=== PATIENT | female | born 1990 | race Caucasian/White ===

== ENCOUNTER 2023-05-27 08:37 | Inpatient (IN) | payer OTHER ==
[~2023-05-27 08:37] MED LIST: Bupivacaine 0.25% 10 ML SDV ONE; Bupivacaine 0.5% 30 ML SDV ONE; Dexamethasone 4 MG/ML 5 ML MDV ONE; EPINEPHrine 1 MG/ML SDV ONE; HYDROmorphone 0.5 MG/0.5 ML Syringe IVPUSH PRN; Lactated Ringers 1,000 ML IV SCH; Midazolam 1 MG/ML 2 ML SDV ONE; Ondansetron 4 MG/2 ML SDV IVPUSH PRN; Ondansetron 4 MG/2 ML SDV ONE; Propofol 200 MG/20 ML SDV ONE; Rocuronium 50 MG/5 ML Vial ONE; Sodium Chloride 0.9% 10 ML Syringe FLUSH PRN; fentaNYL 100 MCG/2 ML SDV IVPUSH PRN; fentaNYL 250 MCG/5 ML SDV ONE
[2023-05-27] MEDS ORDERED: ceFAZolin 2 GM Vial ONE (08:50)
[2023-05-27] MEDS ORDERED: Scopalamine 1mg/3day Transdermal Patch TOP ONE (08:59)
[2023-05-27] MEDS ORDERED: fentaNYL 250 MCG/5 ML SDV ONE (09:13)
[2023-05-27] MEDS ORDERED: Lactated Ringers 1,000 ML IV ONE (11:00)
[2023-05-27] MEDS ORDERED: Ketorolac 30 MG/ML SDV IVPUSH PRN (12:12)
[2023-05-27] MEDS: Acetaminophen/oxyCODONE 325-5 MG Tab PO PRN ×3 (13:25→20:55)
[2023-05-27] MEDS: Sodium Chloride 0.9% 10 ML Syringe FLUSH SCH ×2 (18:28→22:16)
[2023-05-27 19:37] LABS: BASOPHILS PERCENT AUTO 0.1 % (0.0-1.0); HEMOGLOBIN 10.6 gm/dl (12.0-16.0); IMMATURE GRAN ABSOLUTE AUTO 0.03 K/mm3 (0.00-0.05); IMMATURE GRAN PERCENT AUTO 0.2 % (0.0-0.4); LYMPHOCYTES ABSOLUTE AUTO 1.4 K/mm3 (1.0-4.8); LYMPHOCYTES PERCENT AUTO 10.4 % (24.0-44.0); MEAN CORPUSCULAR HEMOGLOBIN 29.5 pg (28.0-32.0); MEAN CORPUSCULAR HGB CONC 33.1 g/dl (32.0-36.0); MEAN CORPUSCULAR VOLUME 89.1 fl (83.0-99.0); MEAN PLATELET VOLUME 10.9 fl (9.4-12.3); MONOCYTES PERCENT AUTO 7.1 % (0.0-8.0); NEUTROPHILS ABSOLUTE AUTO 11.2 K/mm3 (1.8-7.7); NEUTROPHILS PERCENT AUTO 82.2 % (41.0-71.0); PLATELET COUNT,PLT 305 K/mm3 (150-400); RED BLOOD CELL COUNT 3.59 M/mm3 (4.10-5.30); WHITE BLOOD CELL COUNT,WBC 13.66 K/mm3 (3.9-11.3)
[2023-05-27 19:48] LABS: ALBUMIN 3.2 g/dl (3.4-5.0); ANION GAP 13.4 (5-15); BILIRUBIN TOTAL 0.3 mg/dL (0.2-1.0); BUN/CREATININE RATIO 18.6 (14-18); CALCIUM 8.5 mg/dL (8.5-10.1); CREATININE 0.7 mg/dL (0.55-1.02); EST CRCL DRUG DOSING (CG) 101.48 mL/min; POTASSIUM,K 4.4 mEq/L (3.5-5.1); PROTEIN TOTAL,TP 6.3 g/dl (6.4-8.2)
[2023-05-27] MEDS ORDERED: Simethicone 80 MG Tab.Chew PO PRN (20:25)
[2023-05-27] MEDS: Simethicone 80 MG Tab.Chew PO PRN (20:48)
[2023-05-27] MEDS ORDERED: Nicotine 14 MG/24 Hr Patch TRDERM SCH (22:30)
[2023-05-28] MEDS: Simethicone 80 MG Tab.Chew PO PRN (03:06)
[2023-05-28] MEDS: Acetaminophen/oxyCODONE 325-5 MG Tab PO PRN (03:06)
== END 2023-05-28 08:04 | disposition home or self-care (01) | DRG 743 ==
LOC: JD.SDS 08:37 → JD.OB 17:06
PROVIDERS: ADMIT Obstetrics & Gynecology; ATTEND Obstetrics & Gynecology
PROC: 0UT7FZZ Resection of Bilateral Fallopian Tubes, Via Natural or Artificial Opening With Percutaneous Endoscopic Assistance (ICD-10-PCS; 2023-05-27)
PROC: 0TSD4ZZ Reposition Urethra, Percutaneous Endoscopic Approach (ICD-10-PCS; 2023-05-27)
PROC: 0UT9FZZ Resection of Uterus, Via Natural or Artificial Opening With Percutaneous Endoscopic Assistance (ICD-10-PCS; principal; 2023-05-27 09:45)
DX: N92.0 Excessive and frequent menstruation with regular cycle (principal); N94.6 Dysmenorrhea, unspecified; N81.10 Cystocele, unspecified; N39.3 Stress incontinence (female) (male)
CPT/HCPCS: 36415; 80053; 81025; 85025; 86850; 86900; 86901; A9270-GY; C1771; J0171; J0665; J0690; J1100; J1170; J1885; J2250; J2405; J2704; J3010; J3490; J7120